=== PATIENT | female | born 2005 | race Two or more races ===

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

== ENCOUNTER 2024-06-21 10:03 | Emergency (ER) | payer OTHER ==
[~2024-06-21] VITALS: Ht 165.1 cm; Wt 54.4 kg
[~2024-06-21 10:03] MED LIST: KEPPRA1000 MG; METFORMIN HCL500 M3; NAPR500T14 PO; ZONEGRAN100 MG
[2024-06-21] MEDS ORDERED: KEPPRA500 MG PO (10:11)
[2024-06-21] MEDS ORDERED: ZONEGRAN100 MG PO (10:12)
[2024-06-21] MEDS ORDERED: ELEPSIA XR1500 MG PO (10:12)
[2024-06-21 11:26] LABS: HEMATOCRIT 31.8 % (36.0-45.00); HEMOGLOBIN 10.7 g/dL (12.0-15.00); MEAN CELL VOLUME 83.3 fL (80.00-100.00); MEAN CORPUSCULAR HGB CONC 33.6 g/dl (32.0-36.0); PLATELET COUNT 271 K/uL (150-450); RED BLOOD COUNT 3.82 M/uL (4.00-6.00); RED CELL DISTRIBUTION WIDTH 14.7 % (11.5-14.5)
[2024-06-21 11:55] LABS: ALBUMIN 3.7 gm/dL (3.4-5.0); BILIRUBIN TOTAL 0.13 mg/dL (0.3-1.2); CALCIUM 8.7 mg/dL (8.5-10.1); CREATININE SERUM 0.62 mg/dL (0.55-1.02); GFR 122.72; GLOBULINA 4.3 G/DL (2.4-3.5); POTASSIUM 3.48 mEq/L (3.5-5.1); T4 FREE 0.51 NG/ML (0.76-1.46); TSH 1.68 uIU/mL (0.358-3.74)
[2024-06-21 14:50] LABS: PH,URINE 7.5 (5.0-8.0); URINE APPEARANCE Turbid; URINE BILIRRUBIN Negative (NEGATIVE); URINE BLOOD Negative; URINE COLOR Yellow; URINE GLUCOSE Negative (NEGATIVE); URINE KETONE Negative (NEGATIVE); URINE LEUKOCYTE Trace; URINE NITRATE Negative; URINE PROTEIN Negative (NEGATIVE)
[2024-06-21 14:54] LABS: URINE BACTERIA 1083.1 uL (0.0-1933); URINE EPITHELIAL CELLS 26.8 uL (0.0-38.8); URINE RBC 9.5 uL (0.0-20.8); URINE WBC 10.9 uL (0.0-23.2)
[2024-06-21 15:30] LABS: URINE CAST 0.44 uL (0.0-1.40)
[2024-06-21] MEDS ORDERED: FAMOTIDINE/PF 20 MG/2 ML VIAL IV ONE (16:45)
[2024-06-21] MEDS ORDERED: KETOROLAC TROMETHAMINE 15 MG VIAL IU ONE (16:45)
[2024-06-21] MEDS ORDERED: CEFTRIAXONE SODIUM 2,000 MG VIAL IV ONE (17:00)
[2024-06-21] MEDS ORDERED: 0.9 % SODIUM CHLORIDE 1,000 ML IV SCH (17:00)
[2024-06-21] MEDS ORDERED: KETOROLAC TROMETHAMINE 30 MG VIAL ONE (17:19)
[2024-06-21] MEDS ORDERED: FAMOTIDINE/PF 20 MG/2 ML VIAL ONE (17:19)
[2024-06-21] MEDS ORDERED: CEFTRIAXONE SODIUM 2,000 MG VIAL ONE (17:19)
[2024-06-21] MEDS ORDERED: CEFTRIAXONE SODIUM 1,000 MG VIAL ONE (19:55)
[2024-06-21] MEDS ORDERED: LIDOCAINE HCL 1% 10ML VIAL ONE (19:56)
[2024-06-21] MEDS ORDERED: CEFTRIAXONE SODIUM 1,000 MG VIAL IM ONE (20:00)
== END 2024-06-21 20:12 | disposition home or self-care (01) ==
LOC: EMR PED 10:06 → ER 10:06 → EMR PED 10:26
PROVIDERS: Emergency Medicine Pediatric Emergency Medicine
DX: R10.9 Unspecified abdominal pain (principal); G43.909 Migraine, unspecified, not intractable, without status migrainosus; E11.9 Type 2 diabetes mellitus without complications; Z79.84 Long term (current) use of oral hypoglycemic drugs; N83.291 Other ovarian cyst, right side

== ENCOUNTER 2024-10-21 13:00 | Outpatient (CLI) | payer OTHER ==
[~2024-10-21 13:00] MED LIST changes: +ELEPSIA XR1500 MG PO; +KEPPRA500 MG PO; +ZONEGRAN100 MG PO
== END 2024-10-21 13:04 | disposition home or self-care (01) ==
LOC: RAD 13:00
DX: E04.1 Nontoxic single thyroid nodule (principal); R59.9 Enlarged lymph nodes, unspecified; Z11.3 Encounter for screening for infections with a predominantly sexual mode of transmission; Z13.21 Encounter for screening for nutritional disorder; Z13.0 Encounter for screening for diseases of the blood and blood-forming organs and certain disorders involving the immune mechanism; Z13.1 Encounter for screening for diabetes mellitus; Z13.220 Encounter for screening for lipoid disorders; Z13.29 Encounter for screening for other suspected endocrine disorder; E11.9 Type 2 diabetes mellitus without complications; N39.0 Urinary tract infection, site not specified; E03.9 Hypothyroidism, unspecified